=== PATIENT | male | born 1960 | race Caucasian/White ===

== ENCOUNTER 2016-11-29 11:35 | Emergency (ER) | payer MEDICAID ==
[2016-11-29] MEDS ORDERED: KETOROLAC 60 MG/2 ML VIAL IM STA (12:30)
[2016-11-29] MEDS ORDERED: DEXAMETHASONE 10 MG/ML VIAL PO STA (12:30)
[2016-11-29] MEDS ORDERED: DEXAMETHASONE 10 MG/ML VIAL ONE (12:37)
[2016-11-29] MEDS ORDERED: KETOROLAC 60 MG/2 ML VIAL ONE (12:37)
[2016-11-29] MEDS ORDERED: CHERRY SYRUP 10 ML UDC PO ONE (12:37)
== END 2016-11-29 13:11 | disposition home or self-care (01) ==
DX: M54.41 Lumbago with sciatica, right side (principal)
CPT/HCPCS: 96372; 99283; A9270

== ENCOUNTER 2019-09-05 11:12 | Emergency (ER) | payer MEDICAID ==
[2019-09-05] MEDS ORDERED: CHERRY SYRUP 10 ML UDC PO ONE (13:11)
[2019-09-05] MEDS ORDERED: DEXAMETHASONE 10 MG/ML VIAL PO STA (13:11)
[2019-09-05] MEDS ORDERED: KETOROLAC 60 MG/2 ML VIAL IM STA (13:11)
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
--- NOTE | 2019-09-05 13:50 | XRAY Report ---
Reason: increasing right hip pain Procedure Date: 09/05/2019 Accession Number: [id number] / [id number] Procedure: XR - Hip w/Pelvis 2-3V RT CPT Code: Final Report FULL RESULT: EXAM: RIGHT HIP RADIOGRAPHY EXAM DATE: 09/05/2019 01:26 PM. CLINICAL HISTORY: Increasing right hip pain. COMPARISON: None. TECHNIQUE: 2 views. FINDINGS: Bones: Normal. No fractures or bone lesion. Joints: Mild degenerative changes of bilateral hip joints as suggested by loss of joint space, periarticular sclerosis and marginal acetabular osteophytes. Soft Tissues: Normal. No soft tissue swelling. IMPRESSION: Mild osteoarthritis of bilateral hip joints. No acute displaced fracture or malalignment. RADIA
[2019-09-05 14:37] VITALS: BP 160/85
== END 2019-09-05 14:40 | disposition home or self-care (01) ==
LOC: ED 11:12
DX: M54.31 Sciatica, right side (principal); V89.2XXA Person injured in unspecified motor-vehicle accident, traffic, initial encounter
CPT/HCPCS: 73502; 96372; 99283; 99284; A9270

== ENCOUNTER 2019-09-07 15:01 | Emergency (ER) | payer OTHER, MEDICAID ==
[2019-09-07 15:17] VITALS: BP 143/96
== END 2019-09-07 16:59 | disposition left against medical advice (07) ==
LOC: ED 15:01
DX: Z53.21 Procedure and treatment not carried out due to patient leaving prior to being seen by health care provider (principal)

== ENCOUNTER 2019-10-30 11:13 | Emergency (ER) | payer OTHER, MEDICAID ==
--- NOTE | 2019-10-30 12:47 | ED Physician Documentation ---
History of Present Illness - Stated complaint Stated Complaint: RIGHT SHOULDER PX - Chief complaint Chief Complaint: Trauma Ext - History obtained from History obtained from: Patient - History of Present Illness Timing: Today Pain level max: 9 Pain level now: 0 - Additonal information Additional information: 59-year-old male states that he slipped fell and landed on the right shoulder. He states he does not have pain if he is not moving the shoulder, but as soon as he goes to move the shoulder his pain spikes to a 9 or 10 out of 10. Patient is right-handed. No numbness or tingling. No deformity. Worse with movement and better with rest. No head, neck, back pain. Review of Systems Constitutional: denies: Fever, Chills Respiratory: denies: Cough GI: denies: Vomiting, Diarrhea Skin: denies: Rash Musculoskeletal: denies: Neck pain, Back pain PD PAST MEDICAL HISTORY - Past Medical History Cardiovascular: None Respiratory: None Endocrine/Autoimmune: None GI: None : None Psych: None Musculoskeletal: None - Past Surgical History Past Surgical History: No - Present Medications Home Medications: Ambulatory Orders Medication Instructions Recorded Confirmed Cyclobenzaprine [Flexeril] 10 mg PO TID PRN #20 tablet 09/05/19 Hydrocodone/Acetaminophen 1 - 2 each PO Q6H PRN #14 tablet 09/05/19 [Hydrocodon-Acetaminophen 5-325] Cyclobenzaprine [Flexeril] 10 mg PO TID PRN #20 tablet 10/30/19 Hydrocodone/Acetaminophen 1 - 2 each PO Q6H PRN #14 tablet 10/30/19 [Hydrocodon-Acetaminophen 5-325] - Allergies Allergies/Adverse Reactions: Allergies Allergy/AdvReac Type Severity Reaction Status Date / Time No Known Drug Allergies Allergy Verified 10/30/19 11:17 - Social History Does the pt smoke?: No Smoking Status: Never smoker Does the pt drink ETOH?: Yes Does the pt have substance abuse?: No - Immunizations Immunizations are current?: Yes PD ED PE NORMAL - Vitals Vital signs reviewed: Yes - General General: Alert and oriented X 3, No acute distress, Well developed/nourished - HEENT HEENT: Atraumatic, Moist mucous membranes - Neck Neck: Supple, no meningeal sign, No bony TTP - Cardiac Cardiac: RRR - Respiratory Respiratory: No respiratory distress, Clear bilaterally - Abdomen Abdomen: Soft, Non tender, Non distended - Back Back: No spinal TTP - Derm Derm: Warm and dry - Extremities Extremities: Other (No tenderness or deformity of the right shoulder, but severely limited range of motion secondary to pain in all directions. Neurovascularly intact including the axillary nerve) - Neuro Neuro: Alert and oriented X 3 - Psych Psych: Normal mood, Normal affect Results - Vitals Vitals: Vital Signs - 24 hr 10/30/19 10/30/19 11:17 13:08 Temperature 36.5 C 36.9 C Heart Rate 74 75 Respiratory 16 18 Rate Blood Pressure 127/94 H 138/75 H O2 Saturation 92 94 Oxygen O2 Source Room air - Rads (name of study) R shoulder xray Radiology: Prelim report reviewed, EMP read contemporaneously, See rad report (DJD) PD MEDICAL DECISION MAKING - ED course Complexity details: reviewed results, re-evaluated patient, considered diff erential, d/w patient ED course: 59-year-old male with a right shoulder injury. Likely sprain versus rotator cuff injury. Will prescribe pain medication muscle relaxants for home. No acute findings on x-ray. Placed in a sling for comfort. Patient counseled regarding signs and symptoms for which I believe and urgent re-evaluation would be necessary. Patient with good understanding of and agreement to plan and is comfortable going home at this time This document was made in part using voice recognition software. While efforts are made to proofread this document, sound alike and grammatical errors may occur. Encouraged gentle stretching and early range of motion. Departure - Departure Disposition: 01 Home, Self Care Clinical Impression: Right shoulder injury Qualifiers: Encounter type: initial encounter Qualified Code(s): S49.91XA - Unspecified injury of right shoulder and upper arm, initial encounter Condition: Good Instructions: ED Sprain Shoulder Follow-Up: HUSSAIN BOOTH, MSN, EMPLOYMENT OFFICE CLERK [Primary Care Provider] - Within 1 week Prescriptions: Cyclobenzaprine [Flexeril] 10 mg PO TID PRN #20 tablet PRN Reason: Spasms Hydrocodone/Acetaminophen [Hydrocodon-Acetaminophen 5-325] 1 - 2 each PO Q6H PRN #14 tablet PRN Reason: pain Comments: Return if you worsen. Use the sling as needed for comfort. Continue to gently stretch your shoulder. It may feel better to sit upright while you sleep for the next few nights such as in a recliner. Do not drink alcohol or drive while on narcotic pain medicine. Note that many narcotic pain relievers also contain tylenol/acetaminophen. Please ensure that your total dose of acetaminophen from all sources does not exceed 3 grams (3000mg) per day. You may constipated on this medication, take a stool softener such as "Colace" twice a day while you are on it. Also recommend a szra-lyf-tsbenoy laxative such as senna or MiraLAX any day that you do not have a bowel movement. If you received narcotic pain medication in the emergency department, do not drive or operate machinery for the next 24 hours. Discharge Date/Time: 10/30/19 13:28
--- NOTE | 2019-10-30 12:48 | XRAY Report ---
Reason: R shoulder pain s/p fall Procedure Date: 10/30/2019 Accession Number: [id number] / [id number] Procedure: XR - Shoulder 3 View RT CPT Code: Final Report FULL RESULT: EXAM: RIGHT SHOULDER RADIOGRAPHY EXAM DATE: 10/30/2019 12:38 PM. CLINICAL HISTORY: R shoulder pain s/p fall. COMPARISON: None. TECHNIQUE: 3 views. FINDINGS: Bones: Normal. No fracture or bone lesion. Joints: AC joint hypertrophy. Glenohumeral joint intact. Soft tissues: The visualized hemithorax is unremarkable. No soft tissue swelling. IMPRESSION: AC joint DJD. RADIA
[2019-10-30 13:09] VITALS: BP 138/75
== END 2019-10-30 13:28 | disposition home or self-care (01) ==
LOC: ED 11:13
DX: S49.91XA Unspecified injury of right shoulder and upper arm, initial encounter (principal); W01.0XXA Fall on same level from slipping, tripping and stumbling without subsequent striking against object, initial encounter
CPT/HCPCS: 99283; 99284

== ENCOUNTER 2021-11-07 16:09 | Day surgery (SDC) | payer BC, MEDICAID ==
[2021-11-07 16:28] LABS: BASOPHILS # (AUTO) 0.1 10^3/uL (0.0-0.1); BASOPHILS % (AUTO) 0.8 %; EOSINOPHILS # (AUTO) 0.2 10^3/uL (0.0-0.7); EOSINOPHILS % (AUTO) 2.6 %; HCT - HEMATOCRIT 38.5 % (42.0-52.0); HGB - HEMOGLOBIN 12.6 g/dL (14.0-18.0); LYMPHOCYTES # (AUTO) 1.3 10^3/uL (1.5-3.5); LYMPHOCYTES % (AUTO) 16.5 %; MEAN CORPUSCULAR HEMOGLOBIN 30.1 pg (27.0-31.0); MEAN CORPUSCULAR HGB CONC 32.7 g/dL (32.0-36.0); MEAN CORPUSCULAR VOLUME 91.9 fL (80.0-94.0); MONOCYTES # (AUTO) 0.5 10^3/uL (0.0-1.0); MONOCYTES % (AUTO) 7.1 %; NEUTROPHILS # (AUTO) 5.4 10^3/uL (1.5-6.6); NEUTROPHILS % (AUTO) 72.1 %; PLT - PLATELET COUNT 336 10^3/uL (130-450); RED BLOOD COUNT 4.19 10^6/uL (4.70-6.10); RED CELL DISTRIBUTION WIDTH 14.9 % (12.0-15.0); WHITE BLOOD COUNT 7.6 x10^3/uL (4.8-10.8)
[2021-11-07] MEDS ORDERED: ONDANSETRON 4 MG/2 ML VIAL IVP STA (16:31)
[2021-11-07] MEDS ORDERED: HYDROmorphone 1 MG/ML CARPUJECT IVP STA (16:31)
--- NOTE | 2021-11-07 16:32 | ED Physician Documentation ---
PD HPI ABD PAIN - Stated complaint Stated Complaint: CHEST PX - Chief complaint Chief Complaint: Cardiac - History obtained from History obtained from: Patient - History of Present Illness Timing - onset: Today Pain level max: 10 Pain level now: 10 Location: RUQ Associated symptoms: Nausea. No: Fever, Vomiting, Hematemesis, Diarrhea, Constipation, Melena, Hematochezia, Dysuria - Additional information Additional information: Patient is a 61-year-old male who presents to the emergency department with right upper quadrant abdominal pain. It started this morning and has been present all day. Nothing seems to make it better or worse. Some nausea but no vomiting. Has never had similar symptoms previously. Review of Systems Ten Systems: 10 systems reviewed and negative Constitutional: denies: Fever, Chills Respiratory: denies: Cough, Wheezing GI: reports: Nausea : denies: Dysuria Skin: denies: Rash Musculoskeletal: denies: Neck pain, Back pain Neurologic: denies: Headache PD PAST MEDICAL HISTORY - Past Medical History Cardiovascular: None Respiratory: None Endocrine/Autoimmune: None GI: None : None Psych: None Musculoskeletal: None - Past Surgical History Past Surgical History: No - Present Medications Home Medications: Ambulatory Orders Medication Instructions Recorded Confirmed No Known Home Medications 11/07/21 11/07/21 - Allergies Allergies/Adverse Reactions: Allergies Allergy/AdvReac Type Severity Reaction Status Date / Time No Known Drug Allergies Allergy Verified 11/07/21 18:04 - Social History Does the pt smoke?: No Smoking Status: Never smoker Does the pt drink ETOH?: Yes Does the pt have substance abuse?: No - Immunizations Immunizations are current?: Yes PD ED PE NORMAL - Vitals Vital signs reviewed: Yes - General General: Alert and oriented X 3, Other (Appears in pain) - HEENT HEENT: Moist mucous membranes - Cardiac Cardiac: RRR - Respiratory Respiratory: No respiratory distress, Clear bilaterally - Abdomen Abdomen: Soft, Non distended, Other (Tender to palpation right upper quadrant. Positive Awad sign) - Back Back: No CVA TTP, No spinal TTP - Derm Derm: Warm and dry - Extremities Extremities: No edema - Neuro Neuro: Alert and oriented X 3 - Psych Psych: Normal mood, Normal affect Results - Vitals Vitals: Vital Signs - 24 hr 11/07/21 11/07/21 11/07/21 16:15 16:33 17:02 Temperature 36.2 C L 36.7 C Heart Rate 83 67 74 Heart Rate [ Brachial] Respiratory 20 18 15 Rate Blood Pressure 145/112 H 162/126 H 178/115 H Blood Pressure [Left Brachial artery] Blood Pressure [Right Brachial artery] O2 Saturation 97 98 97 11/07/21 11/07/21 11/07/21 17:30 18:46 19:00 Temperature Heart Rate 74 72 72 Heart Rate [ Brachial] Respiratory 14 18 22 Rate Blood Pressure 187/118 H 157/100 H 163/104 H Blood Pressure [Left Brachial artery] Blood Pressure [Right Brachial artery] O2 Saturation 98 98 96 11/07/21 11/07/21 19:30 20:00 Temperature 36.5 C Heart Rate 71 Heart Rate [ 68 Brachial] Respiratory 18 16 Rate Blood Pressure 153/99 H Blood Pressure 159/105 H [Left Brachial artery] Blood Pressure 168/108 H [Right Brachial artery] O2 Saturation 100 100 Oxygen O2 Source Room air Oxygen Flow Rate 4 - EKG (time done) 1611 Rate: Rate (enter#) (90) Rhythm: NSR Blakely: Normal Intervals: Normal NM QRS: Normal Ischemia: Normal ST segments - Labs Labs: Laboratory Tests 11/07/21 11/07/21 11/07/21 16:20 16:20 16:20 WBC 7.6 RBC 4.19 L Hgb 12.6 L Hct 38.5 L MCV 91.9 MCH 30.1 MCHC 32.7 RDW 14.9 Plt Count 336 MPV 9.0 Neut # (Auto) 5.4 Lymph # (Auto) 1.3 L Gove # (Auto) 0.5 Eos # (Auto) 0.2 Baso # (Auto) 0.1 Absolute Nucleated RBC 0.00 Nucleated RBC % 0.0 Sodium 134 L Potassium 4.3 Chloride 97 L Carbon Dioxide 28 Anion Gap 9.0 BUN 13 Creatinine 0.9 Estimated GFR (MDRD) 86 L Glucose 161 H Calcium 8.9 Total Bilirubin 0.7 AST 16 ALT 27 Alkaline Phosphatase 65 Troponin I High Sens 4.7 Total Protein 7.6 Albumin 3.5 Globulin 4.1 Albumin/Globulin Ratio 0.9 L Lipase 33 Nasal Adenovirus (PCR) Nasal B. parapertussis DNA (PCR) Nasal Coronavir 229E PCR Nasal Coronavir HKU1 PCR Nasal Coronavir NL63 PCR Nasal Coronavir OC43 PCR Nasal Enterovir/Rhinovir PCR Nasal Influenza B PCR Nasal Influenza A PCR Nasal Parainfluen 1 PCR Nasal Parainfluen 2 PCR Nasal Parainfluen 3 PCR Nasal Parainfluen 4 PCR Nasal RSV (PCR) Nasal B.pertussis DNA PCR Nasal C.pneumoniae (PCR) Neal Human Metapneumo PCR Nasal M.pneumoniae (PCR) Nasal SARS-CoV-2 (PCR) 11/07/21 18:45 WBC RBC Hgb Hct MCV MCH MCHC RDW Plt Count MPV Neut # (Auto) Lymph # (Auto) Gove # (Auto) Eos # (Auto) Baso # (Auto) Absolute Nucleated RBC Nucleated RBC % Sodium Potassium Chloride Carbon Dioxide Anion Gap BUN Creatinine Estimated GFR (MDRD) Glucose Calcium Total Bilirubin AST ALT Alkaline Phosphatase Troponin I High Sens Total Protein Albumin Globulin Albumin/Globulin Ratio Lipase Nasal Adenovirus (PCR) NOT DETECTED Nasal B. parapertussis DNA (PCR) NOT DETECTED Nasal Coronavir 229E PCR NOT DETECTED Nasal Coronavir HKU1 PCR NOT DETECTED Nasal Coronavir NL63 PCR NOT DETECTED Nasal Coronavir OC43 PCR NOT DETECTED Nasal Enterovir/Rhinovir PCR NOT DETECTED Nasal Influenza B PCR NOT DETECTED Nasal Influenza A PCR NOT DETECTED Nasal Parainfluen 1 PCR NOT DETECTED Nasal Parainfluen 2 PCR NOT DETECTED Nasal Parainfluen 3 PCR NOT DETECTED Nasal Parainfluen 4 PCR NOT DETECTED Nasal RSV (PCR) NOT DETECTED Nasal B.pertussis DNA PCR NOT DETECTED Nasal C.pneumoniae (PCR) NOT DETECTED Neal Human Metapneumo PCR NOT DETECTED Nasal M.pneumoniae (PCR) NOT DETECTED Nasal SARS-CoV-2 (PCR) DETECTED A - Rads (name of study) Right upper quadrant ultrasound Radiology: Final report received, EMP read contemporaneously, See rad report Chest x-ray Radiology: Final report received, EMP read contemporaneously, See rad report PD MEDICAL DECISION MAKING - ED course Complexity details: reviewed results, re-evaluated patient, considered differential, d/w patient, d/w design studio consultant ED course: 61-year-old male presents to the emergency department with right upper quadrant abdominal pain. Ultrasound findings consistent with cholecystitis. Positive M urphy sign on exam. Zosyn given. Pain well controlled. Discussed the case with Dr. Bob, general surgery who will consult and plan on OR in am. IMPRESSION: Cholelithiasis with sonographic findings consistent with acute cholecystitis. No biliary ductal dilatation identified. Diffuse hepatic steatosis. A nonspecific 4 mm echogenic focus in the right kidney which may represent a nonobstructing renal stone versus vascular calcification. Departure - Departure Disposition: ED Transfer to [facility] Clinical Impression: Acute cholecystitis Condition: Stable Discharge Date/Time: 11/07/21 20:12
[2021-11-07 16:42] LABS: ALBUMIN 3.5 g/dL (3.2-5.5); ALBUMIN/GLOBULIN RATIO 0.9 (1.0-2.2); BILIRUBIN,TOTAL 0.7 mg/dL (0.2-1.0); CALCIUM 8.9 mg/dL (8.5-10.3); CREATININE 0.9 mg/dL (0.6-1.2); POTASSIUM 4.3 mmol/L (3.5-5.0); TOTAL PROTEIN 7.6 g/dL (6.7-8.2)
--- NOTE | 2021-11-07 16:54 | XRAY Report ---
PROCEDURE: Chest 1 View X-Ray INDICATIONS: Chest Pain TECHNIQUE: One view of the chest was acquired. COMPARISON: Not available. FINDINGS: Surgical changes and devices: None. Lungs and pleura: No pleural effusions or pneumothorax. Lungs are clear. Mediastinum: Mediastinal contours appear normal. Heart size is normal. Bones and chest wall: No suspicious bony lesions. Overlying soft tissues appear unremarkable. IMPRESSION: No acute cardiopulmonary disease. Reviewed by: Tom Loja MD on 11/07/2021 4:52 PM [facility] Approved by: Tom Loja MD on 11/07/2021 4:52 PM [facility] Station ID: [id number]
--- NOTE | 2021-11-07 17:54 | Ultrasound Report ---
PROCEDURE: Abdomen Limited INDICATIONS: RUQ abd pain, + ahn's TECHNIQUE: Real-time scanning was performed of the abdominal and retroperitoneal organs, with image documentatio n. COMPARISON: None. FINDINGS: Liver: The liver demonstrates diffusely increased echotexture without focal abnormalities which is co nsistent with chronic hepatocellular disease/hepatic steatosis. Gallbladder: Multiple small gallstones are identified. There is borderline wall thickening measuring between 2.5 and 3.7 mm in thickness. Trace pericholecystic fluid. There is a positive sonographic Mur phy's sign. Biliary ducts: Intrahepatic bile ducts are non-dilated. Extrahepatic bile duct caliber measures 5 m m. Normal is 6-7 mm or less in diameter, or 10 mm or less post-cholecystectomy. Pancreas: Pancreas not well imaged secondary to overlying bowel gas. Kidneys: Right kidney is normal in size and echotexture. Right kidney measures 12.6 cm long. No hydr onephrosis or nephrolithiasis. No solid masses. There is a small 4 mm echogenic focus in the right kidney which may represent a nonobstructing stone versus vascular calcification. Miscellaneous: No free abdominal fluid. IMPRESSION: Cholelithiasis with sonographic findings consistent with acute cholecystitis. No biliary ductal dilat ation identified. Diffuse hepatic steatosis. A nonspecific 4 mm echogenic focus in the right kidney which may represent a nonobstructing renal sto ne versus vascular calcification. Reviewed by: Finn Antonio MD on 11/07/2021 4:52 PM [facility] Approved by: Finn Antonio MD on 11/07/2021 4:52 PM [facility] Station ID: [id number]
[2021-11-07] MEDS ORDERED: PIPERACILLIN/TAZOBACTAM 3.375 GM in SODIUM CHLORIDE 0.9% MINIBAG 100 ML IV STA (18:06)
[2021-11-07] MEDS ORDERED: SODIUM CHLORIDE 0.9% 1,000 ML IV STA ×2 (18:06→21:08)
[2021-11-07] MEDS ORDERED: ACETAMINOPHEN 1,000 MG/100 ML 100 ML IV PRN ×2 (19:05→21:09)
[2021-11-07] MEDS ORDERED: ONDANSETRON 4 MG/2 ML VIAL IVP PRN ×2 (19:05→21:10)
[2021-11-07] MEDS ORDERED: HYDROmorphone 1 MG/ML CARPUJECT IVP PRN ×2 (19:05→21:05)
[2021-11-07] MEDS ORDERED: SODIUM CHLORIDE FLUSH 0.9% 10 ML SYRINGE IVP PRN (19:05)
[2021-11-07 19:46] LABS: CORONAVIRUS 229E-RESP PCR NOT DETECTED; CORONAVIRUS HKU1-RESP PCR NOT DETECTED; CORONAVIRUS NL63-RESP PCR NOT DETECTED; CORONAVIRUS OC43-RESP PCR NOT DETECTED
[2021-11-07 19:47] LABS: B. PARAPERTUSSIS- RESP PCR PAN NOT DETECTED; B. PERTUSSIS- RESP PCR PANEL NOT DETECTED; C. PNEUMONIAE- RESP PCR PANEL NOT DETECTED; HUMAN METAPNEUMOVIRUS NOT DETECTED; INFLUENZA A- RESP PCR PANEL NOT DETECTED; INFLUENZA B - RESP PCR PANEL NOT DETECTED; M. PNEUMONIAE- RESP PCR PANEL NOT DETECTED; PARAINFLUENZA VIRUS 1 NOT DETECTED; PARAINFLUENZA VIRUS 2 NOT DETECTED; PARAINFLUENZA VIRUS 3 NOT DETECTED; PARAINFLUENZA VIRUS 4 NOT DETECTED; RHINOVIRUS/ENTEROVIRUS NOT DETECTED; RSV- RESP PCR PANEL NOT DETECTED; SARS-CoV-2 -RESP PCR PANEL DETECTED
[2021-11-07] MEDS ORDERED: SODIUM CHLORIDE 0.9% 1,000 ML IV SCH ×2 (20:00→22:00)
[2021-11-07] MEDS: PIPERACILLIN/TAZOBACTAM 3.375 GM in SODIUM CHLORIDE 0.9% MINIBAG 100 ML IV SCH (21:37)
[2021-11-07] MEDS ORDERED: PIPERACILLIN/TAZOBACTAM 3.375 GM in SODIUM CHLORIDE 0.9% MINIBAG 100 ML IV SCH (22:00)
[2021-11-08] MEDS ORDERED: PIPERACILLIN/TAZOBACTAM 3.375 GM in SODIUM CHLORIDE 0.9% MINIBAG 100 ML IV SCH ×2
[2021-11-08] MEDS: SODIUM CHLORIDE FLUSH 0.9% 10 ML SYRINGE IVP SCH ×2 (00:09→09:47)
[2021-11-08] MEDS: PIPERACILLIN/TAZOBACTAM 3.375 GM in SODIUM CHLORIDE 0.9% MINIBAG 100 ML IV SCH (05:26)
[2021-11-08] MEDS ORDERED: PANTOPRAZOLE 40 MG VIAL IVP SCH ×2 (07:00→19:15)
[2021-11-08] MEDS ORDERED: fentaNYL 100 MCG/2 ML VIAL ONE (07:05)
[2021-11-08] MEDS ORDERED: KETOROLAC 30 MG/ML VIAL ONE (07:06)
[2021-11-08] MEDS ORDERED: ROCURONIUM 50 MG/5 ML VIAL ONE (07:06)
[2021-11-08] MEDS ORDERED: ONDANSETRON 4 MG/2 ML VIAL ONE (07:06)
[2021-11-08] MEDS ORDERED: PROPOFOL 200 MG/20 ML VIAL IVP ONE (07:06)
[2021-11-08] MEDS ORDERED: LIDOCAINE-MPF 2% 5 ML VIAL ONE (07:06)
[2021-11-08] MEDS ORDERED: DEXAMETHASONE 4 MG/ML VIAL ONE (07:06)
[2021-11-08] MEDS ORDERED: LIDOCAINE MPF 2%-EPI 1:200000 20 ML VIAL ONE (07:12)
[2021-11-08] MEDS ORDERED: BUPIVACAINE 0.5% PF 10 ML VIAL ONE (07:12)
--- NOTE | 2021-11-08 07:50 | HISTORY & PHYSICAL EXAMINATION ---
HPI - Admitted From Admitted from: ED - History Obtained From History obtained from: Patient Exam limitations: No limitations - History of Present Illness Pain/Problem Location Description: Severe right upper quadrant pain Severity at the worst: reports: Severe Pain Quality: reports: Sharp Context-Pain started w/: reports: Rest Timing: reports: Abrupt onset, Constant (Since beginning) Duration: reports: Hours: (About 12) Improved with: reports: Nothing Worsened by: reports: Inspiration, Movement, Palpation Associated symptoms: reports: Nausea. 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 He reports that he was in his usual state of health when he began to have severe right upper quadrant pain last evening. His pain was associated with some transient nausea but no vomiting. He denies any similar symptoms in the past. It is notable that he was diagnosed with Covid pneumonia and was seen and treated at [facility]. He has improved since that time and reports he no longer has any symptoms. It has been about 2- 1/2 weeks since that occurrence.The patient was seen and evaluated in the emergency room and admitted overnight for pain control and supportive care. We tentatively planned to remove his gallbladder this morning if he had not improved. When that plan was made, we did not understand the timing of his illness. This morning he is pain-free.He reports he is feeling fine he just does not want to experience that difficulty again. He denies any shortness of b reath. His test here in our emergency room was positive for Covid antigen. 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[employer]) Living Situation: Alone - Social History Does the pt smoke?: No Smoking Status: Never smoker Does the pt drink ETOH?: Yes Does the pt have substance abuse?: No Substance Use and Type: Marijuana Meds/Allgy - Home Medications Home Medications: Ambulatory Orders Medication Instructions Recorded Confirmed No Known Home Medications 11/07/21 11/07/21 - Allergies Allergies/Adverse Reactions: Allergies Allergy/AdvReac Type Severity Reaction Status Date / Time No Known Drug Allergies Allergy Verified 11/07/21 18:04 Review of Systems - Constitutional Constitutional: reports: Fatigue, Diaphoresis - Gastrointestinal Gastrointestinal: reports: Abdominal pain, Nausea Exam - Vital Signs Reviewed Vital Signs: Yes Vital Signs: Vital Signs x48h Temp Pulse Resp BP Pulse Ox 11/08/21 05:45 36.8 C 82 16 139/90 H 91 L 11/08/21 00:04 36.3 C L 76 16 139/92 H 95 - Physical Exam General Appearance: positive: No acute distress, Alert Eyes Bilateral: positive: Normal inspection, PERRL, EOMI ENT: positive: ENT inspection nml, Pharynx nml, No signs of dehydration Neck: positive: Nml inspection Respiratory: positive: No respiratory distress Cardiovascular: positive: Regular rate & rhythm, No murmur Peripheral Pulses: positive: 0 Abdomen: positive: Nml bowel sounds, Tenderness. negative: Guarding, Rebound Back: negative: CVA tenderness (R), CVA tenderness (L) Skin: positive: Color nml Extremities: positive: Non-tender Neurologic/Psychiatric: positive: Oriented x3 Results - Lab Results Fish Bones: 11/07/21 16:20 11/07/21 16:20 Other Lab Results: Lab Results x24hrs 11/07/21 11/07/21 11/07/21 Range/Units 18:45 16:20 16:20 WBC (4.8-10.8) x10^3/uL RBC (4.70-6.10) 10^6/uL Hgb (14.0-18.0) g/dL Hct (42.0-52.0) % MCV (80.0-94.0) fL MCH (27.0-31.0) pg MCHC (32.0-36.0) g/dL RDW (12.0-15.0) % Plt Count (130-450) 10^3/uL MPV (7.4-11.4) fL Neut # (Auto) (1.5-6.6) 10^3/uL Lymph # (Auto) (1.5-3.5) 10^3/uL Citrus # (Auto) (0.0-1.0) 10^3/uL Eos # (Auto) (0.0-0.7) 10^3/uL Baso # (Auto) (0.0-0.1) 10^3/uL Absolute Nucleated RBC x10^3/uL Nucleated RBC % /100WBC Sodium 134 L (135-145) mmol/L Potassium 4.3 (3.5-5.0) mmol/L Chloride 97 L (101-111) mmol/L Carbon Dioxide 28 (21-32) mmol/L Anion Gap 9.0 (6-13) BUN 13 (6-20) mg/dL Creatinine 0.9 (0.6-1.2) mg/dL Estimated GFR (MDRD) 86 L (>89) Glucose 161 H (70-100) mg/dL Calcium 8.9 (8.5-10.3) mg/dL Total Bilirubin 0.7 (0.2-1.0) mg/dL AST 16 (10-42) IU/L ALT 27 (10-60) IU/L Alkaline Phosphatase 65 (42-121) IU/L Troponin I High Sens 4.7 (2.3-19.7) ng/L Total Protein 7.6 (6.7-8.2) g/dL Albumin 3.5 (3.2-5.5) g/dL Globulin 4.1 (2.1-4.2) g/dL Albumin/Globulin Ratio 0.9 L (1.0-2.2) Lipase 33 (22-51) U/L Nasal Adenovirus (PCR) NOT DETECTED Nasal B. parapertussis DNA (PCR) NOT DETECTED Nasal Coronavir 229E PCR NOT DETECTED Nasal Coronavir HKU1 PCR NOT DETECTED Nasal Coronavir NL63 PCR NOT DETECTED Nasal Coronavir OC43 PCR NOT DETECTED Nasal Enterovir/Rhinovir PCR NOT DETECTED Nasal Influenza B PCR NOT DETECTED Nasal Influenza A PCR NOT DETECTED Nasal Parainfluen 1 PCR NOT DETECTED Nasal Parainfluen 2 PCR NOT DETECTED Nasal Parainfluen 3 PCR NOT DETECTED Nasal Parainfluen 4 PCR NOT DETECTED Nasal RSV (PCR) NOT DETECTED Nasal B.pertussis DNA PCR NOT DETECTED Nasal C.pneumoniae (PCR) NOT DETECTED Neal Human Metapneumo PCR NOT DETECTED Nasal M.pneumoniae (PCR) NOT DETECTED Nasal SARS-CoV-2 (PCR) DETECTED A 11/07/21 Range/Units 16:20 WBC 7.6 (4.8-10.8) x10^3/uL RBC 4.19 L (4.70-6.10) 10^6/uL Hgb 12.6 L (14.0-18.0) g/dL Hct 38.5 L (42.0-52.0) % MCV 91.9 (80.0-94.0) fL MCH 30.1 (27.0-31.0) pg MCHC 32.7 (32.0-36.0) g/dL RDW 14.9 (12.0-15.0) % Plt Count 336 (130-450) 10^3/uL MPV 9.0 (7.4-11.4) fL Neut # (Auto) 5.4 (1.5-6.6) 10^3/uL Lymph # (Auto) 1.3 L (1.5-3.5) 10^3/uL Citrus # (Auto) 0.5 (0.0-1.0) 10^3/uL Eos # (Auto) 0.2 (0.0-0.7) 10^3/uL Baso # (Auto) 0.1 (0.0-0.1) 10^3/uL Absolute Nucleated RBC 0.00 x10^3/uL Nucleated RBC % 0.0 /100WBC Sodium (135-145) mmol/L Potassium (3.5-5.0) mmol/L Chloride (101-111) mmol/L Carbon Dioxide (21-32) mmol/L Anion Gap (6-13) BUN (6-20) mg/dL Creatinine (0.6-1.2) mg/dL Estimated GFR (MDRD) (>89) Glucose (70-100) mg/dL Calcium (8.5-10.3) mg/dL Total Bilirubin (0.2-1.0) mg/dL AST (10-42) IU/L ALT (10-60) IU/L Alkaline Phosphatase (42-121) IU/L Troponin I High Sens (2.3-19.7) ng/L Total Protein (6.7-8.2) g/dL Albumin (3.2-5.5) g/dL Globulin (2.1-4.2) g/dL Albumin/Globulin Ratio (1.0-2.2) Lipase (22-51) U/L Nasal Adenovirus (PCR) Nasal B. parapertussis DNA (PCR) Nasal Coronavir 229E PCR Nasal Coronavir HKU1 PCR Nasal Coronavir NL63 PCR Nasal Coronavir OC43 PCR Nasal Enterovir/Rhinovir PCR Nasal Influenza B PCR Nasal Influenza A PCR Nasal Parainfluen 1 PCR Nasal Parainfluen 2 PCR Nasal Parainfluen 3 PCR Nasal Parainfluen 4 PCR Nasal RSV (PCR) Nasal B.pertussis DNA PCR Nasal C.pneumoniae (PCR) Neal Human Metapneumo PCR Nasal M.pneumoniae (PCR) Nasal SARS-CoV-2 (PCR) - Diagnostic Imaging Results Diagnostic Imaging Results Comments: Abdominal ultrasound shows multiple small gallstones with thickening and some pericholecystic fluid. All consistent with acute cholecystitis. Also, sonographic Awad sign was noted Impression/Plan - Problem List Problem List: Acute cholecystitis that is resolving slowly. According to recent guidelines, we need to wait somewhere between 4 and 6 weeks since his last symptom. I am going to discharge him to his home in the care of his family with some antibiotic and pain medication as well as some nausea medication in case his symptoms recur. He is instructed to eat a low-fat diet and to follow-up with me tomorrow in the clinic. The clinic will call to give him a date and time and we will schedule his surgery per CDC guidelines.
--- NOTE | 2021-11-08 07:59 | Discharge Plan ---
Discharge Plan Problem Reviewed?: Yes Disposition: Home, Self Care Condition: Stable Prescriptions: Docusate Sodium 100Mg Capsule [Colace 100Mg Capsule] 100 mg PO DAILY #10 cap levoFLOXacin [Levaquin] 500 mg PO QD #6 tablet oxyCODONE [Roxicodone] 5 mg PO Q6H PRN #7 tablet PRN Reason: Abdominal Pain Ondansetron Odt [Zofran Odt] 4 mg TL Q6H PRN #10 tablet PRN Reason: Nausea / Vomiting Diet: Cardiac (Very low fat diet) Activity Restrictions: No Restrictions Shower Restrictions: No Driving Restrictions: Yes (Not while taking narcotic pain medication) No Smoking: If you smoke, Please STOP! Call for help. Follow-up with: Ghanshyam Stanley MD [Provider Admit Priv/Credential] -
--- NOTE | 2021-11-08 08:04 | DISCHARGE SUMMARY ---
"Discharge Summary Admit Date: 11/07/21 Discharge Date: 11/08/21 Discharging Provider: Jaden Code Status: Attempt Resuscitation Condition at Discharge: Stable Discharge Disposition: 01 Home, Self Care - DIAGNOSES Admission Diagnoses: Acute cholecystitis and cholelithiasis Discharge Diagnoses with Status of Each Condition: Improved - HPI History of Present Illness: Sergio is a pleasant gentleman who presented to the emergency room last evening complaining of severe right upper quadrant pain. He was seen and evaluated and determined to have acute cholecystitis and cholelithiasis. He also had an EKG revealing a normal sinus rhythm without any evidence of ischemia. He was admitted overnight for pain control with a tentative plan for surgery this morning. - CONSULTS | PROCEDURES Consultations: None Procedures: None - HOSPITAL COURSE Hospital Course: Overnight, the patient symptoms completely resolved. He did report that he had Covid pneumonia approximately 2 weeks ago. His last symptom he thinks may have been about 15 days before presentation to the emergency room. He does not feel that he has any significant symptoms anymore but he does have a headache this morning. He denies any abdominal pain this morning. He says he actually feels pretty good and would like to have some breakfast.He is very concerned about having that sort of pain again.Due to CDC guidelines, it is not safe to put him to sleepAt this time in the setting of an elective operation. As his pain has resolved and his labs are normal, this is an elective procedure.He will be discharged to his home in the care of his family. Discharge medications will include pain medicine, nausea medicine, antibiotic, and stool softener. He will follow-up with me tomorrow in my office to plan surgery. He tells me he has all the papers from his recent admission at [facility] so that we can follow the guidelines and plan timing of his cholecystectomy. In the interim, he is instructed to follow a very low-fat diet and to drink plenty of nonalcoholic liquid. - ALLERGIES Allergies/Adverse Reactions: Allergies Allergy/AdvReac Type Severity Reaction Status Date / Time No Known Drug Allergies Allergy Verified 11/07/21 18:04 - MEDICATIONS Home Medications: Ambulatory Orders Medication Instructions Recorded Confirmed Docusate Sodium 100Mg Capsule 100 mg PO DAILY #10 cap 11/08/21 [Colace 100Mg Capsule] Ondansetron Odt [Zofran Odt] 4 mg TL Q6H PRN #10 tablet 11/08/21 levoFLOXacin [Levaquin] 500 mg PO QD #6 tablet 11/08/21 oxyCODONE [Roxicodone] 5 mg PO Q6H PRN #7 tablet 11/08/21 - PHYSICAL EXAM AT DISCHARGE General Appearance: positive: No acute distress, Alert Eyes Bilateral: positive: Normal inspection, PERRL ENT: positive: ENT inspection nml Neck: positive: Nml inspection, Thyroid nml Respiratory: positive: Chest non-tender, No respiratory distress, Breath sounds nml Cardiovascular: positive: Regular rate & rhythm Peripheral Pulses: positive: 0 Abdomen: positive: Tenderness (Very mild). negative: Guarding, Rebound Skin: positive: Color nml Extremities: positive: Non-tender Neurologic/Psychiatric: positive: Oriented x3 - LABS Result Diagrams: 11/07/21 16:20 11/07/21 16:20 - QUALITY (Female Hip Fx Only) Was patient sent home on osteoporosis medication?: No - FOLLOW UP Follow Up: Tomorrow with [facility] surgical care. The office will call later this afternoon to schedule a time. - TIME SPENT Time Spent in Discharge (Minutes): 10"
[2021-11-08] MEDS ORDERED: ACETAMINOPHEN 500 MG TABLET PO PRN ×2 (08:43)
[2021-11-08 11:00] VITALS: BP 134/101
== END 2021-11-08 10:30 | disposition home or self-care (01) ==
LOC: ED 16:09 → MS2 19:05 → SDS 19:05
PROVIDERS: ATTEND Surgery
DX: K80.00 Calculus of gallbladder with acute cholecystitis without obstruction (principal); U07.1 COVID-19
CPT/HCPCS: 0202U; 36415; 71045; 76705; 80053; 83690; 84484; 85025; 93005; 96365; 96375; 99285; A9270; J1170

== ENCOUNTER 2021-12-08 10:22 | Outpatient (CLI) | payer MEDICAID | END 2021-12-08 10:23 | disposition home or self-care (01) | LOC: LAB 10:22 | PROVIDERS: ATTEND Surgery | DX: Z01.812 Encounter for preprocedural laboratory examination (principal); K80.10 Calculus of gallbladder with chronic cholecystitis without obstruction; Z20.822 Contact with and (suspected) exposure to COVID-19 ==

== ENCOUNTER 2022-10-23 10:05 | Emergency (ER) | payer MEDICAID ==
[2022-10-23 10:26] VITALS: BP 146/103
--- NOTE | 2022-10-23 12:33 | ED Physician Documentation ---
PD HPI UPPER EXT INJURY - Stated complaint Stated Complaint: R HAND NERVE PX - Chief complaint Chief Complaint: Ext Problem - History obtained from History obtained from: Patient - History of Present Illness Location: Right, Wrist, Hand, Finger Type of injury: Blunt / blow (he did strike it against object accidentaly last evening, with increased pain over baseline. but has had hand pain in ulnar side hand/wrist and 4/5th fingers. 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 No: Fall, Twist Timing - onset: How many years ago (has had nerve numbness but also sensitivity of the hand on ulnar side and fingers for 2 years. Did see PCP at the time and was told he needed an "MRI" but patient not sure of what area. Has intermittent right lateral thigh numb at times too.) Timing - duration: Years (2 years of symptoms and weakness, leading to cont ractures of 4th5th finger on right. Has had increased pain and flexion of them the past) Timing - details: Gradual onset, Still present Associated symptoms: Weakness, Numbness (ulnar side wrist and hand into ring and little fingers.), Tingling (has some intermittent tingling lateral right thigh as well. Not down leg entirely. No back nor neck pain consistently (hurt at times0.). No: Swelling, Discolored Contributing factors: No: Prior ortho surgery Similar symptoms before: No diagnosis Recently seen: Not recently seen (he did not hav PCP for past 2 years and his insurance did not allow providers from the [facility]. So he has gone without treatment/evaluation with symptoms worsening. He felt it time to get evaluation.) Review of Systems Constitutional: denies: Fever, Chills Skin: denies: Rash, Abrasion (s), Laceration (s) Musculoskeletal: reports: Back pain. denies: Neck pain Neurologic: reports: Focal weakness, Numbness. denies: Altered mental status, Headache, Head injury PD PAST MEDICAL HISTORY - Past Medical History Cardiovascular: None Respiratory: Sleep apnea, Other (covid pneumonia 3 months ago) Neuro: None Endocrine/Autoimmune: None GI: None : None HEENT: None Psych: None Musculoskeletal: None, Osteoarthritis Derm: None - Past Surgical History Past Surgical History: No - Present Medications Home Medications: Ambulatory Orders Medication Instructions Recorded Confirmed Docusate Sodium 100Mg Capsule 100 mg PO DAILY #10 cap 11/08/21 12/06/21 [Colace 100Mg Capsule] Ondansetron Odt [Zofran Odt] 4 mg TL Q6H PRN #10 tablet 11/08/21 12/06/21 oxyCODONE [Roxicodone] 5 mg PO Q6HR PRN 12/06/21 12/06/21 oxyCODONE/ACET 5/325 [Percocet 5 1 each PO Q4-6H PRN #20 tablet 12/13/21 mg/325 mg] Naproxen 500 mg PO BID 20 Days #40 tab 10/23/22 - Allergies Allergies/Adverse Reactions: Allergies Allergy/AdvReac Type Severity Reaction Status Date / Time No Known Drug Allergies Allergy Verified 10/23/22 10:27 - Social History Does the pt smoke?: No Smoking Status: Never smoker Does the pt drink ETOH?: Yes Does the pt have substance abuse?: No - Immunizations Immunizations are current?: Yes Immunizations: Other immun not current PD ED PE NORMAL - Vitals Vital signs reviewed: Yes - General General: Alert and oriented X 3 - Neck Neck: Supple, no meningeal sign, No bony TTP - Back Back: No spinal TTP - Derm Derm: Normal color, Warm and dry - Extremities Extremities: Other (right hand with decreased sensation to touch at ulnar side hand/wrist and litte/ring fingers. Contractures/flexion of those 2 fingers. Passively they can be stretched out to full extension. ) - Neuro Neuro: Alert and oriented X 3, Normal speech Results - Vitals Vitals: Vital Signs - 24 hr 10/23/22 10:19 Temperature 36.8 C Heart Rate 96 Respiratory 18 Rate Blood Pressure 146/103 H O2 Saturation 98 Oxygen O2 Source Room air - Labs Labs: Laboratory Tests 10/23/22 10/23/22 10/23/22 13:20 13:20 13:20 WBC 7.9 RBC 4.58 L Hgb 14.3 Hct 43.2 MCV 94.3 H MCH 31.2 H MCHC 33.1 RDW 13.7 Plt Count 260 MPV 9.6 Neut # (Auto) 4.7 Lymph # (Auto) 2.2 Eddy # (Auto) 0.6 Eos # (Auto) 0.2 Baso # (Auto) 0.1 Absolute Nucleated RBC 0.00 Nucleated RBC % 0.0 ESR 14 Sodium 139 Potassium 4.2 Chloride 103 Carbon Dioxide 27 Anion Gap 9.0 BUN 20 Creatinine 1.2 Estimated GFR (MDRD) 62 L Glucose 107 H Calcium 9.2 Total Bilirubin 0.7 AST 23 ALT 37 Alkaline Phosphatase 61 C-Reactive Protein 1.1 H Total Protein 7.6 Albumin 4.2 Globulin 3.4 Albumin/Globulin Ratio 1.2 Lipase 34 Rheumatoid Factor 10/23/22 13:20 WBC RBC Hgb Hct MCV MCH MCHC RDW Plt Count MPV Neut # (Auto) Lymph # (Auto) Eddy # (Auto) Eos # (Auto) Baso # (Auto) Absolute Nucleated RBC Nucleated RBC % ESR Sodium Potassium Chloride Carbon Dioxide Anion Gap BUN Creatinine Estimated GFR (MDRD) Glucose Calcium Total Bilirubin AST ALT Alkaline Phosphatase C-Reactive Protein Total Protein Albumin Globulin Albumin/Globulin Ratio Lipase Rheumatoid Factor NEGATIVE PD Medical Decision Making - ED course Complexity details: considered differential, d/w patient Reviewed Lab Results: can get labs to eval for arthritides. otherwise unclear if the nerve irritation is at the level of the wrist/ shoulder/ or neck. it does not sound like centra l/brain. consider most likely a disc related nerve root, but could also be spinal ms 9given simptoms at right hand and some at right thigh, or just separate pinched nerves. could also have immunologic process such as rheumatoid. Social Determinants of Health: he has left this for worsening for 2 years. It may be hard to counter the contractures of the fingers. ED course: splint ulnar gutter provided to help with straightening the fingers, to decrease effect of unopposed flexor strength. 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 This can happen at the level of the wrist or elbow or certainly from the neck area with a "pinched nerve". It would not be resulting from the brain or a stroke. Conditions in the neck that can cause that include pinched nerve, disc abnormality or other structural things like MS. The nerve can be affected through the arm as well and give a similar nerve impingement in that area. I would suggest starting with follow-up with orthopedics. I provided their phone number. Call them for a follow-up appointment for later this week or next week. Meanwhile we will treat the pain and presumed nerve inflammation with some anti-inflammatories twice daily with food. Also use the hand splint to help support and stretch out the fingers so they are not contracted/flexed. I would defer to the orthopedic evaluation to decide if further testing is needed such as MRI and if so of what location and with what technique. We did draw some blood tests here to initially evaluate for immune mediated mediated causes of your symptoms such as rheumatoid arthritis lupus etc. These will result in a couple of few days. They can follow-up with these at your orthopedic appointment. Discharge Date/Time: 10/23/22 14:22
[2022-10-23 13:27] LABS: BASOPHILS # (AUTO) 0.1 10^3/uL (0.0-0.1); BASOPHILS % (AUTO) 1.7 %; EOSINOPHILS # (AUTO) 0.2 10^3/uL (0.0-0.7); EOSINOPHILS % (AUTO) 3.1 %; HCT - HEMATOCRIT 43.2 % (42.0-52.0); HGB - HEMOGLOBIN 14.3 g/dL (14.0-18.0); LYMPHOCYTES # (AUTO) 2.2 10^3/uL (1.5-3.5); LYMPHOCYTES % (AUTO) 27.5 %; MEAN CORPUSCULAR HEMOGLOBIN 31.2 pg (27.0-31.0); MEAN CORPUSCULAR HGB CONC 33.1 g/dL (32.0-36.0); MEAN CORPUSCULAR VOLUME 94.3 fL (80.0-94.0); MEAN PLATELET VOLUME 9.6 fL (7.4-11.4); MONOCYTES # (AUTO) 0.6 10^3/uL (0.0-1.0); MONOCYTES % (AUTO) 7.1 %; NEUTROPHILS # (AUTO) 4.7 10^3/uL (1.5-6.6); NEUTROPHILS % (AUTO) 59.8 %; PLT - PLATELET COUNT 260 10^3/uL (130-450); RED BLOOD COUNT 4.58 10^6/uL (4.70-6.10); RED CELL DISTRIBUTION WIDTH 13.7 % (12.0-15.0); WHITE BLOOD COUNT 7.9 x10^3/uL (4.8-10.8)
[2022-10-23 13:48] LABS: ALBUMIN 4.2 g/dL (3.2-5.5); ALBUMIN/GLOBULIN RATIO 1.2 (1.0-2.2); BILIRUBIN,TOTAL 0.7 mg/dL (0.2-1.0); CALCIUM 9.2 mg/dL (8.5-10.3); CREATININE 1.2 mg/dL (0.6-1.2); CRP - C-REACTIVE PROTEIN 1.1 mg/dL (0-1.0); POTASSIUM 4.2 mmol/L (3.5-5.0); TOTAL PROTEIN 7.6 g/dL (6.7-8.2)
[2022-10-23 13:49] LABS: RHEUMATOID FACTOR NEGATIVE (Negative)
[2022-10-24 21:07] LABS: ANTI-DNA (DS) AB QN 1 IU/mL (0-9); CENTROMERE B ANTIBODIES <0.2 AI (0.0-0.9); CHROMATIN ANTIBODIES <0.2 AI (0.0-0.9); JO-1 AB <0.2 AI (0.0-0.9); RIBOSOMAL P ANTIBODIES <0.2 AI (0.0-0.9); RNP ANTIBODIES 0.6 AI (0.0-0.9); SCLERODERMA-70 ANTIBODIES <0.2 AI (0.0-0.9); SJOGREN'S ANTI-SS-A <0.2 AI (0.0-0.9); SJOGREN'S ANTI-SS-B <0.2 AI (0.0-0.9); SMITH ANTIBODIES <0.2 AI (0.0-0.9); SMITH/RNP ANTIBODIES <0.2 AI (0.0-0.9)
== END 2022-10-23 14:22 | disposition home or self-care (01) ==
LOC: ED 10:05
DX: S64.01XA Injury of ulnar nerve at wrist and hand level of right arm, initial encounter (principal); X58.XXXA Exposure to other specified factors, initial encounter
CPT/HCPCS: 36415; 80053; 83690; 85025; 85651; 86140; 86225; 86235; 86430; 99283